=== PATIENT | male | born 1950 | race Caucasian/White ===

== ENCOUNTER 2018-02-15 12:31 | Inpatient (IN) | payer MEDICARE, MEDICAID ==
[2018-02-15] MEDS ORDERED: cefTRIAXone(*) 1 GM in NS 0.9% 50 ML* 50 ML IVPB ONE (12:33)
[2018-02-15] MEDS ORDERED: Morphine INJ* 2 MG/ML 1 ML SYRINGE (TWO MG - NEW SYRINGE VERSION) IV ONE (12:33)
[2018-02-15] MEDS ORDERED: NS 0.9% 1000 ML* 1,000 ML IV ONE ×2 (12:33→20:10)
--- NOTE | 2018-02-15 12:40 | ED ---
Shortness of Breath - HPI Summary HPI Summary: This is screlvise Tj Silver documenting for attending Toy Morse MD. This patient is a 67 year old M BIBA to ED with a chief complaint of SOB since earlier today. The patient had a biopsy of his lungs and his transfer man found a spot in his lungs. The patient was given a new inhaler and after an acute onset of SOB, he used it a multitude of times because he thought it wasn t helping. He is not sure how many times he used it. Upon arrival, EMS report the patient was in respiratory distress, had expiratory wheezes, and heard nothing in the bases. O2 sat was 81%. Symptoms aggravated by nothing. Symptoms alleviated by nothing. - History of Current Complaint Hx Obtained From: Patient Onset/Duration: Sudden Onset, Lasting Minutes - DESIGN ENGINEERING MANAGER, Still Present Timing: Constant Current Severity: None Aggrevating Factors: Nothing Alleviating Factors: Nothing - Allergy/Home Medications Allergies/Adverse Reactions: Allergies Allergy/AdvReac Type Severity Reaction Status Date / Time Sulfa (Sulfonamide Allergy Unknown Verified 02/15/18 12:56 Antibiotics) Reaction Details Home Medications: Home Medications Albuterol HFA INHALER* [Ventolin HFA Inhaler*] 2 puff INH Q4H PRN 02/15/18 [ History Confirmed 02/15/18] Aspirin 81 mg CHEW TAB* [Aspirin Low Dose TAB*] 162 mg PO DAILY 02/15/18 [ History Confirmed 02/15/18] PMH/Surg Hx/FS Hx/Imm Hx Endocrine/Hematology History: Denies: Hx Diabetes Cardiovascular History: Denies: Hx Hypertension Respiratory History: Reports: Hx Chronic Obstructive Pulmonary Disease (COPD) - Family History Known Family History: Negative: Cardiac Disease, Hypertension, Diabetes - Social History Alcohol Use: None Hx Substance Use: Yes Substance Use Type: Reports: Marijuana Hx Tobacco Use: Yes Review of Systems Negative: Fever Positive: Shortness Of Breath, Other - per EMS, he was in respiratory distress upon arrival with expiratory wheezes and they heard nothing in the bases All Other Systems Reviewed And Are Negative: Yes Physical Exam - Summary Physical Exam Summary: VITAL SIGNS: Reviewed. GENERAL: Patient is a well-developed and nourished MALE who is lying comfortable in the stretcher. Patient is in respiratory distress. HEAD AND FACE: No signs of trauma. No ecchymosis, hematomas or skull depressions. No sinus tenderness. EYES: PERRLA, EOMI x 2, No injected conjunctiva, no nystagmus. EARS: Hearing grossly intact. Ear canals and tympanic membranes are within normal limits. MOUTH: Oropharynx within normal limits. NECK: Supple, trachea is midline, no adenopathy, no JVD, no carotid bruit, no c- spine tenderness, neck with full ROM. CHEST: Symmetric, no tenderness at palpation LUNGS: The patient is under respiratory distress. He is unable to speak full sentences. He has intercostal retraction. Decreased breath sounds bilaterally. Small wheezes. Really tight. CVS: Regular rate and rhythm, S1 and S2 present, no murmurs or gallops appreciated. ABDOMEN: Soft, non-tender. No signs of distention. No rebound no guarding, and no masses palpated. Bowel sounds are normal. EXTREMITIES: FROM in all major joints, no edema, no cyanosis or clubbing. NEURO: Alert and oriented x 3. No acute neurological deficits. Speech is normal and follows commands. SKIN: Dry and warm Triage Information Reviewed: Yes Vital Signs On Initial Exam: Initial Vitals Temp Pulse Resp BP Pulse Ox 98 F 73 24 157/95 97 02/15/18 12:52 02/15/18 12:52 02/15/18 12:52 02/15/18 12:52 02/15/18 12:52 Vital Signs Reviewed: Yes Diagnostics - Laboratory Result Diagrams: 02/15/18 12:54 02/15/18 12:54 Lab Statement: Any lab studies that have been ordered have been reviewed, and results considered in the medical decision making process. - Radiology CXR Radiology Interpretation Completed By: Radiologist - MODERATE RIGHT-SIDED PNEUMOTHORAX. PRELIMINARY FINDINGS WERE DISCUSSED WITH DR. MORSE IN THE EMERGENCY DEPARTMENT AT APPROXIMATELY 1:51 PM ON FEBRUARY 15, 2018. ED physician has reviewed this radiology report. - EKG 1242 Cardiac Rate: NL - 85 BPM EKG Rhythm: Sinus Rhythm EKG Interpretation: No ST elevations. ST depression in II, III, aVF, and V4 V6. Multiple PVCs Re-Evaluation - Re-Evaluation First Eval Re-Evaluation Time: 12:55 Change: Unchanged Second Eval Re-Evaluation Time: 13:04 Change: Improved Comment: The patient is feeling a lot better. The retraction has improved. Third Eval Re-Evaluation Time: 13:58 Comment: Patient reports he had his biopsy in [place] with Dr. Ball yesterday. Course/Dx - Course Assessment/Plan: This patient is a 67 year old M BIBA to ED with a chief complaint of SOB since earlier today. The patient had a biopsy of his lungs and his transfer man found a spot in his lungs. The patient was given a new inhaler and after an acute onset of SOB, he used it a multitude of times because he thought it wasnt helping. He is not sure how many times he used it. Upon arrival, EMS report the patient was in respiratory distress, had expiratory wheezes, and heard nothing in the bases. O2 sat was 81%. Symptoms aggravated by nothing. Symptoms alleviated by nothing. Blood test results as well as a count of 19, with 86.1 neutrophils. There is no bands. CMP shows a carbon dioxide of 21 and glucose 141 and lactic acid is 2.6. Troponin is 0.01. ABG shows a pH of 7.31, PCO2 of 38, PO2 is 73, and O2 sat is 95% and a BiPAP machine. The patient was given duonebs, he was given morphine and seemed to significantly improve. Chest x-ray impression: Moderate right-sided pneumothorax approximately 30% as per Dr. Mason. At this time I discussed the findings and test results with Dr. Pascual from his surgery and he will consult for this patient. I also discussed the findings and test results with Dr. Martin from the hospitalist services who accepted the patient for admission. At this time the patient is feeling better, - Diagnoses Differential Diagnosis/HQI/PQRI: Positive: Asthma, Bronchitis, CHF, COPD Exacerbation, Pneumonia, Pulmonary Edema Provider Diagnoses: COPD exacerbation, Pneumothorax - Physician Notifications Discussed Care of Patient With: Kris Pascual Time Discussed With Above Provider: 14:03 Instructed by Provider To: Other - Consulted Dr. Pascual who will consult with the patient in the ED. Consulted Dr. Martin at 1422 who accepts the patient for admission. Discharge - Sign-Out/Discharge Documenting (check all that apply): Patient Departure - Discharge Plan Condition: Stable Disposition: ADMITTED TO [facility] Referrals: No Primary Care Phys,NOPCP [Primary Care Provider] - - Billing Disposition and Condition Condition: STABLE Disposition: Admitted to [facility]
[2018-02-15] MEDS ORDERED: Albuterol/Ipratropium NEB.SOL* Albuterol 2.5 MG/Ipratropium 0.5 MG 3 ML ONE (12:57)
[2018-02-15] MEDS: Albuterol/Ipratropium NEB.SOL* Albuterol 2.5 MG/Ipratropium 0.5 MG 3 ML INH SCH ×6 (13:00→23:43)
[2018-02-15 13:13] LABS: ABS Basophils 0.1 10^3/ul (0-0.2); ABS Eosinophils 0 10^3/ul (0-0.6); ABS Lymphocytes 1.2 10^3/ul (1.0-4.8); ABS Monocytes 1.3 10^3/ul (0-0.8); ABS Neutrophils 16.3 10^3/ul (1.5-7.7); ABS Nucleated RBC 0 10^3/ul; Eosinophil % 0.1 % (0-6); Hematocrit 45 % (42-52); Hemoglobin 14.9 g/dl (14.0-18.0); Lymphocyte % 6.5 % (25-47); Mean Corpuscular HGB Conc 33 g/dl (31-36); Mean Corpuscular Hemoglobin 31 pg (27-31); Mean Corpuscular Volume 92 fL (80-94); Nucleated Red Blood Cells % 0; Platelet Count 226 10^3/ul (150-450); Red Blood Count 4.88 10^6/ul (4.00-5.40); Red Cell Distribution Width 15 % (10.5-15)
[2018-02-15 13:27] LABS: EGFR Non-African American 79.1 (>60)
--- NOTE | 2018-02-15 13:55 | RAD ---
HISTORY: SOB COMPARISONS: None VIEWS: 1: frontal portable view of the chest at 1:15 PM FINDINGS: LINES AND TUBES: None. CARDIOMEDIASTINAL SILHOUETTE: The cardiomediastinal silhouette is normal for portable technique. PLEURA: There is a moderate right-sided pneumothorax. LUNG PARENCHYMA: There is hyperinflation with emphysematous changes of the lung apices. There is compressive atelectasis of the right lower lung. ABDOMEN: The upper abdomen is clear. There is no subphrenic gas. BONES AND SOFT TISSUES: There is remote post right changes to the right hemithorax. IMPRESSION: MODERATE RIGHT-SIDED PNEUMOTHORAX. PRELIMINARY FINDINGS WERE DISCUSSED WITH DR. ZHENG IN THE EMERGENCY DEPARTMENT AT APPROXIMATELY 1:51 PM ON FEBRUARY 15, 2018.
[2018-02-15] MEDS ORDERED: Mouth Piece, Nicotine* 1 EACH CARTRIDGE INH PRN (15:14)
[2018-02-15] MEDS ORDERED: Ondansetron INJ* 2 MG/ML VIAL IV PRN (15:14)
[2018-02-15] MEDS ORDERED: Albuterol 2.5 MG/3 ML NEB.SOL* (0.083%) INH PRN (15:23)
[2018-02-15] MEDS: Nicotine PATCH 21 MG/24 HR* PATCH TRANSDERM SCH (15:32)
[2018-02-15 18:47] LABS: Urine Appearance Clear; Urine Blood Negative (Negative); Urine Color Yellow; Urine Ketones Negative (Negative); Urine Protein Negative (Negative); Urine Specific Gravity 1.016 (1.010-1.030); Urine Urobilinogen Negative (Negative)
--- NOTE | 2018-02-15 19:07 | RAD ---
INDICATION: Patient is status post chest tube insertion COMPARISON: Chest x-ray acquired at 1318 hours the same day TECHNIQUE: Single AP portable view of the chest was obtained. FINDINGS: Image quality is compromised due to the relative inferiority of a portable chest x-ray. The right-sided pneumothorax is not readily visible status post small bore right upper chest tube placement. Chest tube terminates at the lateral aspect of the right lung base. There is density at the right lung base which could represent atelectasis, infiltrate or solid nodule. There is no mediastinal shift. IMPRESSION: 1. Apparent interval resolution of right-sided pneumothorax status post small bore chest tube placement. 2. Density at the right lung base could represent atelectasis, infiltrate or neoplasm. Follow-up chest x-ray in 4-6 weeks is advised.
[2018-02-15] MEDS: Morphine INJ* 2 MG/ML 1 ML SYRINGE (TWO MG - NEW SYRINGE VERSION) IV PRN ×2 (19:57→23:38)
[2018-02-15] MEDS ORDERED: methylPREDNISolone SOD 40 MG* 1 ML VIAL IV SCH (20:00)
[2018-02-15] MEDS: Nicotine Inhaler* 10 MG AMP INH PRN (20:03)
[2018-02-15] MEDS: Mouth Piece, Nicotine* 1 EACH CARTRIDGE INH PRN (20:03)
[2018-02-15] MEDS: NS 0.9% 1000 ML* 1,000 ML IV SCH ×2 (20:17→21:02)
[2018-02-15] MEDS: Heparin VIAL(*) 5000 UNITS/ML VIAL (FIVE THOUSAND) SUBCUT SCH (22:09)
[2018-02-15] MEDS: methylPREDNISolone SOD 40 MG* 1 ML VIAL IV SCH (22:09)
[2018-02-15] MEDS: Acetaminophen TAB* 325 MG PO PRN (23:38)
--- NOTE | 2018-02-15 23:48 | HP ---
HISTORY AND PHYSICAL: DATE OF ADMISSION: 02/15/18 PRIMARY CARE PROVIDER: Unknown. CHIEF COMPLAINT: Shortness of breath. HISTORY OF PRESENT ILLNESS: Mr. Leung is a 67-year-old male who reports no past medical history, who presents to the emergency room with complaints of sudden onset of shortness of breath. The patient states that approximately 1 month ago, he had a followup with his primary care provider and was recommended to undergo CT scan of the chest to evaluate for possible lung cancer. Reportedly, an abnormality was found. He was referred to [facility], where he underwent bronchoscopy and biopsy. He is unaware of the results of the biopsy. He states that things have been going pretty well up until the night prior to admission, when he describes having 2 anxiety attacks. He noted that his heart rate became rapid. He was able to calm himself down and everything resolved. The patient states that he then woke up at approximately 4 a.m. feeling like he needs to go outside to smoke. He states he had 2 or 3 cigarettes and suddenly felt severely short of breath. He tried using his albuterol inhaler multiple times, though had no effect. The patient ultimately told his roommate that he felt he needed to come to the emergency room. PAST MEDICAL HISTORY: Questionable COPD. PAST SURGICAL HISTORY: Tonsillectomy. MEDICATIONS: 1. Aspirin 81 mg p.o. daily. 2. Albuterol 2 puffs inhaled q.4 hours p.r.n. shortness of breath. ALLERGIES: SULFA. FAMILY HISTORY: Mom at the age of 85 with CVA. Dad at the age of 75 with an [place]. SOCIAL HISTORY: The patient has smoked 2 packs per day for 47 years. He denies any alcohol use. He works at construction. He is not . He has no children. He is unable to choose healthcare proxy at this time. REVIEW OF SYSTEMS: A complete 11-system review of systems is obtained. Pertinent positives and negatives are as per HPI, though the patient does also complain of right shoulder discomfort. Otherwise, review of systems is negative. PHYSICAL EXAMINATION GENERAL: The patient is a well-developed, middle-aged male, seen sitting in the stretcher on BiPAP, in no acute distress. VITAL SIGNS: Blood pressure 157/95, pulse 73, respirations 24, temp 98, O2 sat 97% on BiPAP. HEENT: Pupils are equal and round. Extraocular muscles are intact. Oropharynx is clear. Oral mucosa is moist. There is no submandibular, cervical or supraclavicular adenopathy. Thyroid is not enlarged. No thyroid nodules noted. PULMONARY: There are absent breath sounds heard on the right with diminished breath sounds on the left. CARDIAC: Normal S1, S2. Regular rate and rhythm. I do not appreciate any murmurs. There is no lower extremity edema. ABDOMEN: Bowel sounds are present. Abdomen is soft, nontender, nondistended. MUSCULOSKELETAL: There is no cyanosis or clubbing of the digits. There is full active range of motion of all 4 extremities. NEUROLOGIC: Cranial nerves II through XII are grossly intact. Sensation is intact to light touch throughout. Strength is 5/5 and symmetric in both upper and lower extremities bilaterally. SKIN: Warm and dry. There are no rashes. PSYCH: The patient is alert. He is oriented x3. Affect appears appropriate. LABORATORY DATA: WBC 19.0, hemoglobin 14.9, hematocrit 45, platelets 226. Sodium 139, potassium 3.8, chloride 107, CO2 21, BUN 16, creatinine 0.95, glucose 141, lactic acid 3.6, calcium 8.9, bilirubin 0.3, AST 16, ALT 16, alk phos 54. CPK 142. Troponin 0.01. CRP less than 1. BNP 97. Albumin 4.2. Procalcitonin less than 0.1. Urinalysis reveal specific gravity of 1.016 and otherwise is negative. EKG reveals normal sinus rhythm with PVCs and ST depressions in the inferolateral leads. We have no old EKG to compare. Chest x-ray reveals moderate right-sided pneumothorax. ASSESSMENT AND PLAN: Mr. Leung is a 67-year-old male with an extensive smoking history, recent bronchoscopy and biopsy of a suspicious lung finding, who presented to the emergency room with complaints of sudden onset of severe shortness of breath. 1. Right-sided pneumothorax. This likely is secondary to blood rupture. The patient was treated initially with BiPAP in the emergency room; however, would like to get him off of positive pressure ventilation. The patient will be seen by Dr. Pascual for Heimlich valve insertion. The patient has a marked leukocytosis at 19,000. I suspect this is stress related from the pneumothorax. Additionally, he has a lactic acidosis. I too think this is related to his work of breathing in the setting of having the pneumothorax. The lactic acid will be followed. 2. Probable chronic obstructive lung disease. The patient will be started on DuoNeb every 4 hours scheduled. This can likely be titrated back tomorrow. He will also have Solu-Medrol q.12 hours. Again, this too can be scaled back tomorrow if he has no wheezing, which reportedly was present on presentation to the emergency room. The patient will have morphine available for pain and air hunger control. 3. Tobacco abuse. The patient will have a nicotine patch and inhaler available. 4. DVT prophylaxis: According to the Adult Thrombosis Prophylaxis Risk Factor Assessment Guide, the patient has a total risk factor score of 3 making him high risk. Subcu heparin will be utilized as DVT prophylaxis. 5. Code status is full. TIME SPENT: Sixty five minutes were spent admitting this patient of which greater than half was spent [id number] with the patient reviewing his history and performing his physical exam. [id number]/[facility] #: [id number] SEAN
[2018-02-16] MEDS: Albuterol/Ipratropium NEB.SOL* Albuterol 2.5 MG/Ipratropium 0.5 MG 3 ML INH SCH ×2 (03:36→07:28)
[2018-02-16] MEDS: Heparin VIAL(*) 5000 UNITS/ML VIAL (FIVE THOUSAND) SUBCUT SCH ×3 (06:05→21:43)
--- NOTE | 2018-02-16 06:12 | OP ---
DATE OF OPERATION: 02/15/18 - ROOM #415 DATE OF : 50 SURGEON: Kris Pascual MD MOTOR GRADER OPERATOR: None. ANESTHESIOLOGIST: None. PRE-OP DIAGNOSIS: Right pneumothorax. POST-OP DIAGNOSIS: Right pneumothorax. OPERATIVE PROCEDURE: Placement of right anterior pneumothorax catheter. INDICATIONS: The patient is a 67-year-old male who was seen down at [place] yesterday for bronchoscopic biopsy of a lung lesion. He presented to the emergency room today with increasing dyspnea. A chest x-ray revealed moderate- sized right pneumothorax. On my examination of him, he is wearing a CPAP type device and maintaining good oxygenation with that, but has decreased breath sounds on the right side. I discussed this with him and I recommend a pneumothorax catheter on the right side. He is understanding and is agreeable to this approach. DESCRIPTION OF PROCEDURE: The right anterior chest is prepped antiseptic and draped in sterile fashion. Local infiltrative anesthesia of 1% plain lidocaine was administered and approximately the second interspace is entered in the midclavicular line. Skinny needle identifies air and then the pneumothorax catheter is placed and this is hooked to the Heimlich valve device. It is sutured to the skin and bandage is placed. He tolerated this well. A chest x- ray will be obtained and we will continue to follow him thereafter. [id number]/[facility] #: [id number] MTDD
[2018-02-16 06:51] LABS: Hematocrit 39 % (42-52); Hemoglobin 13.1 g/dl (14.0-18.0); Mean Corpuscular HGB Conc 33 g/dl (31-36); Mean Corpuscular Hemoglobin 31 pg (27-31); Mean Corpuscular Volume 91 fL (80-94); Mean Platelet Volume 8.9 um3 (7.4-10.4); Platelet Count 177 10^3/ul (150-450); Red Blood Count 4.29 10^6/ul (4.00-5.40); Red Cell Distribution Width 15 % (10.5-15); White Blood Count 13.3 10^3/ul (3.5-10.8)
[2018-02-16 06:57] LABS: ABS Basophils 0 10^3/ul (0-0.2); ABS Eosinophils 0 10^3/ul (0-0.6); ABS Lymphocytes 0.8 10^3/ul (1.0-4.8); ABS Monocytes 0.5 10^3/ul (0-0.8); ABS Neutrophils 11.9 10^3/ul (1.5-7.7); ABS Nucleated RBC 0 10^3/ul; Eosinophil % 0 % (0-6); Lymphocyte % 6.3 % (25-47); Nucleated Red Blood Cells % 0
[2018-02-16 07:58] LABS: EGFR Non-African American 99.3 (>60)
--- NOTE | 2018-02-16 08:58 | PN ---
Progress Note - Progress Note Date of Service: 02/16/18 Note: Day #2 right ptx Feels well, breathing easier, no pain Heimlich valve still with expiratory air leak. Impr: Iatrogenic right ptx Cont Heimlich valve until air leak resolved
[2018-02-16] MEDS: Nicotine Inhaler* 10 MG AMP INH PRN (09:28)
[2018-02-16] MEDS: methylPREDNISolone SOD 40 MG* 1 ML VIAL IV SCH (09:28)
[2018-02-16] MEDS: Nicotine PATCH 21 MG/24 HR* PATCH TRANSDERM SCH (09:28)
[2018-02-16] MEDS: NS 0.9% 1000 ML* 1,000 ML IV SCH ×2 (09:28→21:42)
[2018-02-16] MEDS ORDERED: Albuterol/Ipratropium NEB.SOL* Albuterol 2.5 MG/Ipratropium 0.5 MG 3 ML INH PRN (09:45)
--- NOTE | 2018-02-16 15:29 | PN ---
Subjective Date of Service: 02/16/18 Interval History: Pt is feeling winded currently; he just got back to his bed from walking about [address] He states he has no pain. His SOB prior to the walk was better than it has been recently. Objective Active Medications: Acetaminophen (Tylenol Tab*) 650 mg PO Q4H PRN PRN Reason: PAIN Last Admin: 02/15/18 23:38 Dose: 650 mg Albuterol (Ventolin 2.5 Mg/3 Ml Neb.Isamar*) 2.5 mg INH Q2H PRN PRN Reason: SOB/WHEEZING Albuterol/Ipratropium (Duoneb (Albuterol 2.5 Mg/Ipratropium 0.5 Mg)) 1 neb INH Q4H PRN PRN Reason: SHORTNESS OF BREATH Last Admin: 02/16/18 12:27 Dose: 1 neb Device (Nicotine Mouth Piece*) 1 each INH .USE WITH NICOTROL PRN PRN Reason: CRAVING Last Admin: 02/15/18 20:03 Dose: 1 each Heparin Sodium (Porcine) (Heparin Vial(*)) 5,000 units SUBCUT Q8HR [facility] Last Admin: 02/16/18 06:05 Dose: 5,000 units Sodium Chloride (Ns 0.9% 1000 Ml*) 1,000 mls @ 100 mls/hr IV PER RATE [facility] Last Admin: 02/16/18 09:28 Dose: 100 mls/hr Morphine Sulfate (Morphine Inj ((Syringe))*) 2 mg IV Q4H PRN PRN Reason: PAIN - MILD Last Admin: 02/15/18 23:38 Dose: 2 mg Nicotine (Nicotine Inhaler*) 10 mg INH Q2H PRN PRN Reason: CRAVING Last Admin: 02/16/18 09:28 Dose: 10 mg Nicotine (Nicotine Patch 21 Mg/24 Hr*) 1 patch TRANSDERM DAILY@0800 [facility] Last Admin: 02/16/18 09:28 Dose: 1 patch Ondansetron HCl (Zofran Inj*) 4 mg IV Q6H PRN PRN Reason: NAUSEA Vital Signs - 8 hr 02/16/18 02/16/18 07:29 12:29 Pulse Rate 78 86 Respiratory 14 14 Rate O2 Sat by Pulse 97 96 Oximetry Oxygen Devices in Use Now: Nasal Cannula Appearance: Middle aged male sitting up in bed, tachypnic, NAD Eyes: No Scleral Icterus Ears/Nose/Mouth/Throat: Mucous Membranes Moist Respiratory: Symmetrical Chest Expansion and Respiratory Effort, Clear to Auscultation - diminshed breath sounds throughout Cardiovascular: NL Sounds; No Murmurs; No JVD, RRR, No Edema Abdominal: NL Sounds; No Tenderness; No Distention Extremities: No Clubbing, Cyanosis Skin: No Nodules or Sclerosis Neurological: Alert and Oriented x 3 Result Diagrams: 02/16/18 06:39 02/16/18 06:39 Microbiology and Other Data: Microbiology 02/15/18 13:43 Aerobic Blood Culture - Preliminary Blood Venous No Growth Day 1 Anaerobic Blood Culture - Preliminary No Growth Day 1 02/15/18 12:54 Aerobic Blood Culture - Preliminary Blood Venous No Growth Day 1 Anaerobic Blood Culture - Preliminary No Growth Day 1 Assess/Plan/Problems-Billing Mr Leung is a 67 yo M who has a h/o probable COPD and ongoing tobacco abuse ( 2ppd) who presented to the ER with c/o severe SOB and was found to have a moderate R sided pleural effusion. - Patient Problems (1) Pneumothorax, acute Current Visit: Yes Status: Acute Code(s): J93.83 - OTHER PNEUMOTHORAX SNOMED Code(s): 41063262 Comment: Pt had recent bronchoscopy with biopsy for a suspicious lung lesion but on the AM of admission had the sudden onset of SOB. Will try to get records [place] [facility] to determine when his procedure was. The patient had a heimlich valve placed by Dr. Pascual yesterday with marked improvment in his SOB. Management of the pneumothorax per Dr Pascual. (2) COPD exacerbation Current Visit: Yes Status: Acute Code(s): J44.1 - CHRONIC OBSTRUCTIVE PULMONARY DISEASE W (ACUTE) EXACERBATION SNOMED Code(s): 013271006 Comment: The patient had significant wheezing in the ER. No further wheezing but his breath sounds are diminished. Will stop solumedrol and change to prednisone. Continue nebs. (3) DVT prophylaxis Current Visit: Yes Status: Acute Code(s): EHZ5650 - SNOMED Code(s): 618355308 Comment: SQ heparin (4) Full code status Current Visit: Yes Status: Acute Code(s): Z78.9 - OTHER SPECIFIED HEALTH STATUS SNOMED Code(s): 310592943
[2018-02-16] MEDS: Acetaminophen TAB* 325 MG PO PRN (21:42)
[2018-02-17] MEDS: Heparin VIAL(*) 5000 UNITS/ML VIAL (FIVE THOUSAND) SUBCUT SCH ×3 (05:56→21:40)
--- NOTE | 2018-02-17 07:25 | PN ---
Subjective Date of Service: 02/17/18 Interval History: Feels "much better" today. Has been on two walks since admission and thinks he is getting better and stronger each day. Denies wheezing, denies pain. No shortness of breath right now. Had a cough this morning but minimal sputum. Objective Active Medications: Acetaminophen (Tylenol Tab*) 650 mg PO Q4H PRN PRN Reason: PAIN Last Admin: 02/16/18 21:42 Dose: 650 mg Albuterol (Ventolin 2.5 Mg/3 Ml Neb.Isamar*) 2.5 mg INH Q2H PRN PRN Reason: SOB/WHEEZING Albuterol/Ipratropium (Duoneb (Albuterol 2.5 Mg/Ipratropium 0.5 Mg)) 1 neb INH Q4H PRN PRN Reason: SHORTNESS OF BREATH Last Admin: 02/16/18 12:27 Dose: 1 neb Device (Nicotine Mouth Piece*) 1 each INH .USE WITH NICOTROL PRN PRN Reason: CRAVING Last Admin: 02/15/18 20:03 Dose: 1 each Heparin Sodium (Porcine) (Heparin Vial(*)) 5,000 units SUBCUT Q8HR [facility] Last Admin: 02/17/18 05:56 Dose: 5,000 units Sodium Chloride (Ns 0.9% 1000 Ml*) 1,000 mls @ 100 mls/hr IV PER RATE [facility] Last Admin: 02/16/18 21:42 Dose: 100 mls/hr Morphine Sulfate (Morphine Inj ((Syringe))*) 2 mg IV Q4H PRN PRN Reason: PAIN - MILD Last Admin: 02/15/18 23:38 Dose: 2 mg Nicotine (Nicotine Inhaler*) 10 mg INH Q2H PRN PRN Reason: CRAVING Last Admin: 02/16/18 09:28 Dose: 10 mg Nicotine (Nicotine Patch 21 Mg/24 Hr*) 1 patch TRANSDERM DAILY@0800 [facility] Last Admin: 02/16/18 09:28 Dose: 1 patch Ondansetron HCl (Zofran Inj*) 4 mg IV Q6H PRN PRN Reason: NAUSEA Prednisone (Deltasone Tab*) 40 mg PO DAILY [facility] Vital Signs - 8 hr 02/16/18 02/17/18 02/17/18 23:23 03:01 03:39 Temperature 98.0 F Pulse Rate 68 68 54 Respiratory 18 20 18 Rate Blood Pressure 149/79 157/95 (mmHg) O2 Sat by Pulse 96 96 98 Oximetry Oxygen Devices in Use Now: Nasal Cannula Appearance: alert, sitting up in bed breathing comfortably Eyes: No Scleral Icterus Ears/Nose/Mouth/Throat: NL Teeth, Lips, Gums Neck: NL Appearance and Movements; NL JVP Respiratory: Symmetrical Chest Expansion and Respiratory Effort, Clear to Auscultation, - - barrel chest, no wheezing. heimlich valve in place over right chest Cardiovascular: NL Sounds; No Murmurs; No JVD, RRR Abdominal: NL Sounds; No Tenderness; No Distention Lymphatic: No Cervical Adenopathy Extremities: - - + clubbing Skin: No Rash or Ulcers Neurological: Alert and Oriented x 3 Result Diagrams: 02/16/18 06:39 02/16/18 06:39 Microbiology and Other Data: Microbiology 02/15/18 13:43 Aerobic Blood Culture - Preliminary Blood Venous No Growth Day 1 Anaerobic Blood Culture - Preliminary No Growth Day 1 02/15/18 12:54 Aerobic Blood Culture - Preliminary Blood Venous No Growth Day 1 Anaerobic Blood Culture - Preliminary No Growth Day 1 Assess/Plan/Problems-Billing 67 yo man who has a h/o probable COPD and ongoing tobacco abuse (2ppd) who presented to the ER with c/o severe SOB and was found to have a moderate R sided pneumothorax 3 days after a bronchoscopy . - Patient Problems (1) Pneumothorax, acute Current Visit: Yes Status: Acute Code(s): J93.83 - OTHER PNEUMOTHORAX SNOMED Code(s): 96795618 Comment: Heimlich valve in place, tolerating well Repeat CXR today Dr. Pascual following (2) COPD exacerbation Current Visit: Yes Status: Acute Code(s): J44.1 - CHRONIC OBSTRUCTIVE PULMONARY DISEASE W (ACUTE) EXACERBATION SNOMED Code(s): 549396911 Comment: improving now on prednisone and nebs (3) DVT prophylaxis Current Visit: Yes Status: Acute Code(s): UBF9162 - SNOMED Code(s): 310246775 Comment: SQ heparin (4) Tobacco abuse Current Visit: Yes Status: Acute Code(s): Z72.0 - TOBACCO USE SNOMED Code( s): 679103093 Comment: counseled for 10 minutes about cessation, he is motivated to quit
[2018-02-17] MEDS: predniSONE TAB* 20 MG PO SCH (08:26)
[2018-02-17] MEDS: Nicotine PATCH 21 MG/24 HR* PATCH TRANSDERM SCH (08:26)
[2018-02-17] MEDS: Mouth Piece, Nicotine* 1 EACH CARTRIDGE INH PRN (08:29)
[2018-02-17] MEDS: Nicotine Inhaler* 10 MG AMP INH PRN ×3 (08:29→20:02)
--- NOTE | 2018-02-17 08:42 | PN ---
Progress Note - Progress Note Date of Service: 02/17/18 Note: Surgery Progress: S: Day #2 s/p Heimlich placement. Patient states that he is short of breath, but nothing compared to before the Heimlich. He denies chest pain. O: Vital Signs - 8 hr 02/17/18 02/17/18 02/17/18 03:01 03:39 07:25 Temperature 98.0 F Pulse Rate 68 54 62 Respiratory 20 18 20 Rate Blood Pressure 157/95 147/84 (mmHg) O2 Sat by Pulse 96 98 92 Oximetry Gen: appears comfortable, though mildly dyspneic while talking Heart reg; Lungs: clear to ausc; sl decreased at bases Heimlich: still shows sig air leak (under water test) A: Right ptx; s/p Heimlich placement w/ ongoing airleak P: will recheck cXray; discuss w/ Dr. Pascual; cont Heimlich (consider placing to suction)
--- NOTE | 2018-02-17 11:19 | RAD ---
Indication: Follow-up right pneumothorax. Dual energy PA views in inspiration and expiration are reviewed. There is a small right pneumothorax. Right chest tube is in place. Lung garnica appear hyperinflated. Subcutaneous emphysema is noted in the right hemithorax. IMPRESSION: Right pneumothorax persists with subcutaneous emphysema.
[2018-02-17] MEDS: Acetaminophen TAB* 325 MG PO PRN (19:56)
[2018-02-17] MEDS: Morphine INJ* 2 MG/ML 1 ML SYRINGE (TWO MG - NEW SYRINGE VERSION) IV PRN (21:38)
[2018-02-18] MEDS: Nicotine Inhaler* 10 MG AMP INH PRN ×2 (02:35→21:23)
[2018-02-18] MEDS: Morphine INJ* 2 MG/ML 1 ML SYRINGE (TWO MG - NEW SYRINGE VERSION) IV PRN ×2 (03:12→12:21)
[2018-02-18] MEDS: Heparin VIAL(*) 5000 UNITS/ML VIAL (FIVE THOUSAND) SUBCUT SCH ×3 (05:54→21:23)
--- NOTE | 2018-02-18 08:04 | PN ---
Progress Note - Progress Note Date of Service: 02/18/18 Note: HD#3 Heimlich valve for Right Ptx Still with some dyspnea Tube with peristent exp air leak Will place Heimlich to pleurevac suction
--- NOTE | 2018-02-18 08:19 | PN ---
Subjective Date of Service: 02/18/18 Interval History: Had an episode of shortness of breath when he walked to the bathroom yesterday. Dixon his heart was racing but manual hr was 68 by RN. He again reports an episode of shortness of breath when he was getting his vitals taken this morning at rest. He also reports anxiety often. He has no pain at the tube site. Family History: Unchanged from Admission Social History: Unchanged from Admission Past Medical History: Unchanged from Admission Objective Active Medications: Acetaminophen (Tylenol Tab*) 650 mg PO Q4H PRN PRN Reason: PAIN Last Admin: 02/17/18 19:56 Dose: 650 mg Albuterol (Ventolin 2.5 Mg/3 Ml Neb.Isamar*) 2.5 mg INH Q2H PRN PRN Reason: SOB/WHEEZING Albuterol/Ipratropium (Duoneb (Albuterol 2.5 Mg/Ipratropium 0.5 Mg)) 1 neb INH Q4H PRN PRN Reason: SHORTNESS OF BREATH Last Admin: 02/16/18 12:27 Dose: 1 neb Device (Nicotine Mouth Piece*) 1 each INH .USE WITH NICOTROL PRN PRN Reason: CRAVING Last Admin: 02/17/18 08:29 Dose: 1 each Heparin Sodium (Porcine) (Heparin Vial(*)) 5,000 units SUBCUT Q8HR [facility] Last Admin: 02/18/18 05:54 Dose: 5,000 units Morphine Sulfate (Morphine Inj ((Syringe))*) 2 mg IV Q4H PRN PRN Reason: PAIN - MILD Last Admin: 02/18/18 03:12 Dose: 2 mg Nicotine (Nicotine Inhaler*) 10 mg INH Q2H PRN PRN Reason: CRAVING Last Admin: 02/18/18 02:35 Dose: 10 mg Nicotine (Nicotine Patch 21 Mg/24 Hr*) 1 patch TRANSDERM DAILY@0800 [facility] Last Admin: 02/17/18 08:26 Dose: 1 patch Ondansetron HCl (Zofran Inj*) 4 mg IV Q6H PRN PRN Reason: NAUSEA Prednisone (Deltasone Tab*) 40 mg PO DAILY [facility] Last Admin: 02/17/18 08:26 Dose: 40 mg Vital Signs - 8 hr 02/18/18 02/18/18 02/18/18 02:33 03:12 04:38 Temperature 97.6 F Pulse Rate 63 Respiratory 20 22 18 Rate Blood Pressure 150/97 (mmHg) O2 Sat by Pulse 92 Oximetry Oxygen Devices in Use Now: Nasal Cannula Appearance: alert, no distress, slightly tachypneic when he talks but able to speak in full sentences Eyes: No Scleral Icterus Ears/Nose/Mouth/Throat: NL Teeth, Lips, Gums Neck: NL Appearance and Movements; NL JVP Respiratory: Symmetrical Chest Expansion and Respiratory Effort, - - decreased breath sounds at right apex but present Cardiovascular: NL Sounds; No Murmurs; No JVD, RRR Abdominal: NL Sounds; No Tenderness; No Distention Lymphatic: No Cervical Adenopathy Extremities: - - +clubbing Skin: No Rash or Ulcers Neurological: Alert and Oriented x 3 Result Diagrams: 02/16/18 06:39 02/16/18 06:39 Microbiology and Other Data: Microbiology 02/15/18 13:43 Aerobic Blood Culture - Preliminary Blood Venous No Growth Day 1 Anaerobic Blood Culture - Preliminary No Growth Day 1 02/15/18 12:54 Aerobic Blood Culture - Preliminary Blood Venous No Growth Day 1 Anaerobic Blood Culture - Preliminary No Growth Day 1 Assess/Plan/Problems-Billing 67 yo man who has a h/o probable COPD and ongoing tobacco abuse (2ppd) who presented to the ER with c/o severe SOB and was found to have a moderate R sided pneumothorax 3 days after a bronchoscopy . - Patient Problems (1) Pneumothorax, acute Current Visit: Yes Status: Acute Code(s): J93.83 - OTHER PNEUMOTHORAX SNOMED Code(s): 22275010 Comment: Iatrogenic Heimlich valve in place, tolerating well CXR yesterday showed stable PTX. Repeat CXR again today; symptoms seem a little worse today; O2 requirement stable Dr. Pascual following Pain is controlled (2) COPD exacerbation Current Visit: Yes Status: Acute Code(s): J44.1 - CHRONIC OBSTRUCTIVE PULMONARY DISEASE W (ACUTE) EXACERBATION SNOMED Code(s): 019456301 Comment: improving now on prednisone and nebs (3) DVT prophylaxis Current Visit: Yes Status: Acute Code(s): [id number] - SNOMED Code(s): 621214782 Comment: SQ heparin (4) Tobacco abuse Current Visit: Yes Status: Acute Code(s): Z72.0 - TOBACCO USE SNOMED Code( s): 684081955 Comment: counseled again about cessation, he is motivated to quit
--- NOTE | 2018-02-18 09:17 | RAD ---
HISTORY: PTX follow up COMPARISONS: February 17, 2018 VIEWS: 2: frontal portable view of the chest at 8:40 AM FINDINGS: LINES AND TUBES: A right-sided chest tube is noted. CARDIOMEDIASTINAL SILHOUETTE: The cardiomediastinal silhouette is normal for portable technique. PLEURA: There is small residual pneumothorax predominantly along the right costophrenic angle. This is decreased from the previous examination. LUNG PARENCHYMA: There is hyperinflation. ABDOMEN: The upper abdomen is clear. There is no subphrenic gas. BONES AND SOFT TISSUES: There is subcutaneous emphysema. IMPRESSION: PERSISTENT BUT IMPROVING RIGHT-SIDED PNEUMOTHORAX PREDOMINANTLY ALONG THE RIGHT COSTOPHRENIC ANGLE
[2018-02-18] MEDS: predniSONE TAB* 20 MG PO SCH (09:35)
[2018-02-18] MEDS: Nicotine PATCH 21 MG/24 HR* PATCH TRANSDERM SCH (09:36)
[2018-02-18] MEDS: Mouth Piece, Nicotine* 1 EACH CARTRIDGE INH PRN (15:21)
--- NOTE | 2018-02-18 15:51 | PN ---
Hospitalist Progress Note Date of Service: 02/18/[address] Espinoza from [place] who called the nurses' station to report the results of Mr. Leung's biopsy. He reports that the pathology was negative, but that it was an insufficient sample and a CT-guided biopsy should be pursued. I will defer this to the team next week if he is still here, or back to Dr. Espinoza as an outpatient.
[2018-02-18] MEDS: Acetaminophen TAB* 325 MG PO PRN (21:24)
[2018-02-18] MEDS: LORazepam TAB(*) 0.5 MG PO PRN (21:59)
[2018-02-19] MEDS: Heparin VIAL(*) 5000 UNITS/ML VIAL (FIVE THOUSAND) SUBCUT SCH ×3 (05:32→20:53)
[2018-02-19] MEDS: predniSONE TAB* 20 MG PO SCH (07:50)
[2018-02-19] MEDS: Nicotine PATCH 21 MG/24 HR* PATCH TRANSDERM SCH (07:51)
[2018-02-19] MEDS: Nicotine Inhaler* 10 MG AMP INH PRN ×3 (09:18→20:53)
--- NOTE | 2018-02-19 09:58 | PN ---
Progress Note - Progress Note Date of Service: 02/19/18 SOAP: Subjective: Without complaint today-no SOB Objective: Temp Pulse Resp BP Pulse Ox 96.7 F 58 16 143/86 95 02/19/18 07:28 02/19/18 07:28 02/19/18 08:55 02/19/18 07:28 02/19/18 07:28 CT -intermittent leak on suction, no drainage PEX: Right chest tube intact. Decreased breath sounds both sides, equal Assessment: Right pneumthorax s/p biopsy Persistent air leak Plan: Continue tube to suction CXR 02/20
--- NOTE | 2018-02-19 14:16 | PN ---
Subjective Date of Service: 02/19/18 Interval History: Patient seen and examined at bedside. Denies fever, chills, chest discomfort, N/ V/D. Pt states that he was very anxious when he walked to the bathroom earlier with increased shortness of breath. He reports a good appetite. I discussed with him that he will likely need to have a CT guided bx in the future and we can discuss this further on Wednesday once interventional radiology has returned. Pt noted to still have an air leak in his chest tube. Family History: Unchanged from Admission Social History: Unchanged from Admission Past Medical History: Unchanged from Admission Objective Active Medications: Acetaminophen (Tylenol Tab*) 650 mg PO Q4H PRN Reason: PAIN Albuterol (Ventolin 2.5 Mg/3 Ml Neb.Isamar*) 2.5 mg INH Q2H PRN Reason: SOB/ WHEEZING Albuterol/Ipratropium (Duoneb (Albuterol 2.5 Mg/Ipratropium 0.5 Mg)) 1 neb INH Q4H PRN Reason: SHORTNESS OF BREATH Device (Nicotine Mouth Piece*) 1 each INH .USE WITH NICOTROL PRN Reason: CRAVING Heparin Sodium (Porcine) (Heparin Vial(*)) 5,000 units SUBCUT Q8HR [facility] Lorazepam (Ativan Tab(*)) 0.5 mg PO Q6H PRN Reason: ANXIETY Morphine Sulfate (Morphine Inj ((Syringe))*) 2 mg IV Q4H PRN Reason: PAIN - MILD Nicotine (Nicotine Inhaler*) 10 mg INH Q2H PRN Reason: CRAVING Nicotine (Nicotine Patch 21 Mg/24 Hr*) 1 patch TRANSDERM DAILY@0800 [facility] Ondansetron HCl (Zofran Inj*) 4 mg IV Q6H PRN Reason: NAUSEA Prednisone (Deltasone Tab*) 40 mg PO DAILY [facility] Vital Signs - 8 hr 02/19/18 02/19/18 02/19/18 07:28 08:55 11:11 Temperature 96.7 F 98.0 F Pulse Rate 58 65 Respiratory 22 16 16 Rate Blood Pressure 143/86 126/86 (mmHg) O2 Sat by Pulse 95 95 Oximetry Oxygen Devices in Use Now: Nasal Cannula - 4 L Appearance: NAD, sitting up in bed Ears/Nose/Mouth/Throat: Mucous Membranes Moist Respiratory: Symmetrical Chest Expansion and Respiratory Effort, Clear to Auscultation Cardiovascular: NL Sounds; No Murmurs; No JVD, RRR Abdominal: NL Sounds; No Tenderness; No Distention Extremities: No Edema Skin: No Rash or Ulcers Neurological: Alert and Oriented x 3, NL Muscle Strength and Tone Lines/Tubes/Other Access: Clean, Dry and Intact Peripheral IV - site benign, Clean, Dry and Intact Other Access - Chest tube to right upper chest Nutrition: Taking PO's Result Diagrams: 02/16/18 06:39 02/16/18 06:39 Microbiology and Other Data: Microbiology 02/15/18 13:43 Aerobic Blood Culture - Preliminary Blood Venous No Growth Day 1 Anaerobic Blood Culture - Preliminary No Growth Day 1 02/15/18 12:54 Aerobic Blood Culture - Preliminary Blood Venous No Growth Day 1 Anaerobic Blood Culture - Preliminary No Growth Day 1 Assess/Plan/Problems-Billing Assessment: Mr. Leung is a 67 yo man who has a h/o probable COPD and ongoing tobacco abuse (2ppd) who presented to the ER with c/o severe SOB and was found to have a moderate R sided pneumothorax 3 days after a bronchoscopy . - Patient Problems (1) Pneumothorax, acute Code(s): J93.83 - OTHER PNEUMOTHORAX SNOMED Code(s): 30318429 Comment: - Iatrogenic - CXR yesterday showed stable PTX - General Surgery consult, input appreciated - Continue Heimlich valve and check CXR in AM (2) COPD exacerbation Code(s): J44.1 - CHRONIC OBSTRUCTIVE PULMONARY DISEASE W (ACUTE) EXACERBATION SNOMED Code(s): 507605460 Comment: - Improving - Continue prednisone (taper) and nebs (3) Acute hypoxemic respiratory failure Code(s): J96.01 - ACUTE RESPIRATORY FAILURE WITH HYPOXIA SNOMED Code(s): 671853732 Comment: - Suspect secondary to COPD exacerbation and pneumothorax - Wean O2 as able (4) Tobacco abuse Code(s): Z72.0 - TOBACCO USE SNOMED Code(s): 273577941 Comment: - Counseled about cessation, he is motivated to quit - Continue Nicotine replacement (5) DVT prophylaxis Code(s): GQU5520 - SNOMED Code(s): 448366689 Comment: - SQ heparin (6) Full code status Code(s): Z78.9 - OTHER SPECIFIED HEALTH STATUS SNOMED Code(s): 683136160 Status and Disposition: Inpatient. Discharge to home when medically stable.
[2018-02-19] MEDS: LORazepam TAB(*) 0.5 MG PO PRN (23:48)
[2018-02-20] MEDS: Heparin VIAL(*) 5000 UNITS/ML VIAL (FIVE THOUSAND) SUBCUT SCH ×3 (05:31→20:09)
--- NOTE | 2018-02-20 08:17 | RAD ---
Indication: Follow-up right pneumothorax. Single frontal view of the chest performed at 0759 hours was reviewed. Comparison is made with previous exam dated February 18, 2018. Subcutaneous emphysema persists but is improved. Small right apical pneumothorax is noted. Right chest tube is in place. Left lung field is clear. IMPRESSION: TRACE RIGHT PNEUMOTHORAX WITH IMPROVED RIGHT-SIDED SUBCUTANEOUS EMPHYSEMA.
[2018-02-20] MEDS: predniSONE TAB* 20 MG PO SCH (08:23)
[2018-02-20] MEDS: Nicotine Inhaler* 10 MG AMP INH PRN ×3 (08:23→20:09)
[2018-02-20] MEDS: Nicotine PATCH 21 MG/24 HR* PATCH TRANSDERM SCH (08:24)
--- NOTE | 2018-02-20 09:34 | PN ---
Subjective Date of Service: 02/20/18 Interval History: Patient seen and examined at bedside. Denies fever, chills, chest discomfort, N/ V/D. Pt states that the shortness of breath is improving and much better today. He has been able to be weaned off oxygen and is able to walk to the bathroom without much shortness of breath. Noted to still have leak in chest tube. Family History: Unchanged from Admission Social History: Unchanged from Admission Past Medical History: Unchanged from Admission Objective Active Medications: Acetaminophen (Tylenol Tab*) 650 mg PO Q4H PRN Reason: PAIN Albuterol (Ventolin 2.5 Mg/3 Ml Neb.Isamar*) 2.5 mg INH Q2H PRN Reason: SOB/ WHEEZING Albuterol/Ipratropium (Duoneb (Albuterol 2.5 Mg/Ipratropium 0.5 Mg)) 1 neb INH Q4H PRN Reason: SHORTNESS OF BREATH Device (Nicotine Mouth Piece*) 1 each INH .USE WITH NICOTROL PRN Reason: CRAVING Heparin Sodium (Porcine) (Heparin Vial(*)) 5,000 units SUBCUT Q8HR [facility] Lorazepam (Ativan Tab(*)) 0.5 mg PO Q6H PRN Reason: ANXIETY Morphine Sulfate (Morphine Inj ((Syringe))*) 2 mg IV Q4H PRN Reason: PAIN - MILD Nicotine (Nicotine Inhaler*) 10 mg INH Q2H PRN Reason: CRAVING Nicotine (Nicotine Patch 21 Mg/24 Hr*) 1 patch TRANSDERM DAILY@0800 [facility] Ondansetron HCl (Zofran Inj*) 4 mg IV Q6H PRN Reason: NAUSEA Prednisone (Deltasone Tab*) 40 mg PO DAILY [facility] Vital Signs - 8 hr 02/20/18 02/20/18 02/20/18 02:00 02:19 07:15 Temperature 97.6 F Pulse Rate 58 72 Respiratory 16 16 20 Rate Blood Pressure 137/84 142/84 (mmHg) O2 Sat by Pulse 97 96 Oximetry 02/20/18 08:30 Temperature Pulse Rate Respiratory 18 Rate Blood Pressure (mmHg) O2 Sat by Pulse Oximetry Oxygen Devices in Use Now: None Appearance: NAD, sitting up on the side of the bed Ears/Nose/Mouth/Throat: Mucous Membranes Moist Respiratory: Symmetrical Chest Expansion and Respiratory Effort, Clear to Auscultation - , diminished Cardiovascular: NL Sounds; No Murmurs; No JVD, RRR Abdominal: NL Sounds; No Tenderness; No Distention Extremities: No Edema Skin: No Rash or Ulcers, - - Dressing to right upper chest Neurological: Alert and Oriented x 3, NL Muscle Strength and Tone Lines/Tubes/Other Access: Clean, Dry and Intact Peripheral IV - site benign Nutrition: Taking PO's Result Diagrams: 02/16/18 06:39 02/16/18 06:39 Microbiology and Other Data: Microbiology 02/15/18 13:43 Aerobic Blood Culture - Preliminary Blood Venous No Growth Day 1 Anaerobic Blood Culture - Preliminary No Growth Day 1 02/15/18 12:54 Aerobic Blood Culture - Preliminary Blood Venous No Growth Day 1 Anaerobic Blood Culture - Preliminary No Growth Day 1 Assess/Plan/Problems-Billing Assessment: Mr. Leung is a 67 yo man who has a h/o probable COPD and ongoing tobacco abuse (2ppd) who presented to the ER with c/o severe SOB and was found to have a moderate R sided pneumothorax 3 days after a bronchoscopy . - Patient Problems (1) Pneumothorax, acute Code(s): J93.83 - OTHER PNEUMOTHORAX SNOMED Code(s): 28619794 Comment: - Iatrogenic - CXR this AM shows trace PTX - General Surgery consult, input appreciated - Continue Heimlich valve (2) COPD exacerbation Code(s): J44.1 - CHRONIC OBSTRUCTIVE PULMONARY DISEASE W (ACUTE) EXACERBATION SNOMED Code(s): 690038661 Comment: - Improving - Continue prednisone (taper) and nebs (3) Acute hypoxemic respiratory failure Code(s): J96.01 - ACUTE RESPIRATORY FAILURE WITH HYPOXIA SNOMED Code(s): 086850270 Comment: - Resolved - Suspect secondary to COPD exacerbation and pneumothorax (4) Tobacco abuse Code(s): Z72.0 - TOBACCO USE SNOMED Code(s): 984544663 Comment: - Counseled about cessation, he is motivated to quit - Continue Nicotine replacement (5) DVT prophylaxis Code(s): GDJ0730 - SNOMED Code(s): 176144688 Comment: - SQ heparin (6) Full code status Code(s): Z78.9 - OTHER SPECIFIED HEALTH STATUS SNOMED Code(s): 868913063 Status and Disposition: Inpatient. Discharge to home when medically stable.
--- NOTE | 2018-02-20 10:20 | PN ---
Progress Note - Progress Note Date of Service: 02/20/18 SOAP: Subjective: Without complaint today No SOB Objective: Temp Pulse Resp BP Pulse Ox 97.6 F 72 18 142/84 96 02/20/18 07:15 02/20/18 07:15 02/20/18 08:30 02/20/18 07:15 02/20/18 07:15 Chest tube on wall suction-intermittent small leak, much improved from yesterday PEX Right chest tube in postion-lungs sounds are decreased both sides but equal CXR 02/20 reviewed--right lung expanded without ptx Assessment: R Ptx s/p tube placement--still with very small leak but lung is expanded Plan: Continue suction Repeat CXR 02/21 If no leak, d/c tube tomorrow and d/c home
[2018-02-20] MEDS: LORazepam TAB(*) 0.5 MG PO PRN (17:14)
[2018-02-21] MEDS: Acetaminophen TAB* 325 MG PO PRN ×2 (02:21→23:58)
[2018-02-21] MEDS: Mouth Piece, Nicotine* 1 EACH CARTRIDGE INH PRN (02:24)
[2018-02-21] MEDS: Nicotine Inhaler* 10 MG AMP INH PRN ×3 (02:24→19:07)
[2018-02-21] MEDS: Heparin VIAL(*) 5000 UNITS/ML VIAL (FIVE THOUSAND) SUBCUT SCH ×3 (05:09→20:59)
--- NOTE | 2018-02-21 07:46 | RAD ---
INDICATION: Follow-up right pneumothorax COMPARISON: Chest x-ray February 20, 2018 TECHNIQUE: Single AP portable view of the chest was obtained. FINDINGS: Image quality is compromised due to the relative inferiority of a portable chest x-ray. The small bore chest tube is appropriately positioned overlying the right upper lung with the tip overlying the apex. There is a small right-sided pneumothorax not significantly changed from the previous days chest x-ray. Linear density overlying the lower right lung is morphologically most consistent with atelectasis. There is no mediastinal shift. The heart and mediastinal structures are morphologically normal. Visualized bones are normal for the patient's age. IMPRESSION: Persistent small right-sided pneumothorax in the presence of an appropriately positioned small bore chest tube.
--- NOTE | 2018-02-21 08:02 | PN ---
Subjective Date of Service: 02/21/18 Interval History: Patient seen and examined at bedside. Denies fever, chills, shortness of breath , chest discomfort, N/V/D. Pt states that his breathing is much better and he has been ambulating without difficulty. He is anxious to get home, but understands that he needs to stay until the heimlich valve can be removed. He is wondering about the repeat biopsy that he needs done. Family History: Unchanged from Admission Social History: Unchanged from Admission Past Medical History: Unchanged from Admission Objective Active Medications: Acetaminophen (Tylenol Tab*) 650 mg PO Q4H PRN Reason: PAIN Albuterol (Ventolin 2.5 Mg/3 Ml Neb.Isamar*) 2.5 mg INH Q2H PRN Reason: SOB/ WHEEZING Albuterol/Ipratropium (Duoneb (Albuterol 2.5 Mg/Ipratropium 0.5 Mg)) 1 neb INH Q4H PRN Reason: SHORTNESS OF BREATH Device (Nicotine Mouth Piece*) 1 each INH .USE WITH NICOTROL PRN Reason: CRAVING Heparin Sodium (Porcine) (Heparin Vial(*)) 5,000 units SUBCUT Q8HR [facility] Lorazepam (Ativan Tab(*)) 0.5 mg PO Q6H PRN Reason: ANXIETY Morphine Sulfate (Morphine Inj ((Syringe))*) 2 mg IV Q4H PRN Reason: PAIN - MILD Nicotine (Nicotine Inhaler*) 10 mg INH Q2H PRN Reason: CRAVING Nicotine (Nicotine Patch 21 Mg/24 Hr*) 1 patch TRANSDERM DAILY@0800 [facility] Ondansetron HCl (Zofran Inj*) 4 mg IV Q6H PRN Reason: NAUSEA Prednisone (Deltasone Tab*) 30 mg PO DAILY [facility] Vital Signs - 8 hr 02/21/18 02/21/18 03:52 07:16 Temperature 97.5 F Pulse Rate 62 62 Respiratory 18 14 Rate Blood Pressure 153/94 (mmHg) O2 Sat by Pulse 96 93 Oximetry Oxygen Devices in Use Now: None Appearance: NAD, sitting up in bed Ears/Nose/Mouth/Throat: Mucous Membranes Moist Respiratory: Symmetrical Chest Expansion and Respiratory Effort, Clear to Auscultation - , diminished Cardiovascular: NL Sounds; No Murmurs; No JVD, RRR Abdominal: NL Sounds; No Tenderness; No Distention Extremities: No Edema Skin: No Rash or Ulcers Neurological: Alert and Oriented x 3, NL Muscle Strength and Tone Lines/Tubes/Other Access: Clean, Dry and Intact Peripheral IV - site benign, Clean, Dry and Intact Other Access - Heimlich valve right upper chest Nutrition: Taking PO's Result Diagrams: 02/16/18 06:39 02/16/18 06:39 Microbiology and Other Data: Microbiology 02/15/18 13:43 Aerobic Blood Culture - Preliminary Blood Venous No Growth Day 1 Anaerobic Blood Culture - Preliminary No Growth Day 1 02/15/18 12:54 Aerobic Blood Culture - Preliminary Blood Venous No Growth Day 1 Anaerobic Blood Culture - Preliminary No Growth Day 1 Assess/Plan/Problems-Billing Assessment: Mr. Leung is a 67 yo man who has a h/o probable COPD and ongoing tobacco abuse (2ppd) who presented to the ER with c/o severe SOB and was found to have a moderate R sided pneumothorax 3 days after a bronchoscopy . - Patient Problems (1) Pneumothorax, acute Code(s): J93.83 - OTHER PNEUMOTHORAX SNOMED Code(s): 75247684 Comment: - Iatrogenic - CXR this AM shows trace PTX - General Surgery consult, input appreciated - Continue Heimlich valve (2) COPD exacerbation Code(s): J44.1 - CHRONIC OBSTRUCTIVE PULMONARY DISEASE W (ACUTE) EXACERBATION SNOMED Code(s): 035104855 Comment: - Improving - Continue prednisone (taper) and nebs (3) Acute hypoxemic respiratory failure Code(s): J96.01 - ACUTE RESPIRATORY FAILURE WITH HYPOXIA SNOMED Code(s): 744468374 Comment: - Resolved - Suspect secondary to COPD exacerbation and pneumothorax (4) Mediastinal lymphadenopathy Code(s): R59.0 - LOCALIZED ENLARGED LYMPH NODES SNOMED Code(s): 93274661 Comment: - S/P bronch on 02/14/18 - Pathology was negative, but it was an insufficient sample per Dr. Espinoza - Will attempt to obtain records from [place] - CT guided bx could be done outpatient, will refer back to Dr. Espinoza at discharge (5) Tobacco abuse Code(s): Z72.0 - TOBACCO USE SNOMED Code(s): 877877362 Comment: - Counseled about cessation, he is motivated to quit - Continue Nicotine replacement (6) DVT prophylaxis Code(s): KTU0583 - SNOMED Code(s): 485324215 Comment: - SQ heparin (7) Full code status Code(s): Z78.9 - OTHER SPECIFIED HEALTH STATUS SNOMED Code(s): 172834826 Status and Disposition: Inpatient. Discharge to home when medically stable, possibly in the AM.
--- NOTE | 2018-02-21 08:43 | PN ---
Progress Note - Progress Note Date of Service: 02/21/18 Note: S/P Heimlich valve for right ptx Feeling much better. Breathing easy and unlabored Lung well expanded No air leak D/C suction from chest tube Re-check CXr after 4 hrs. If OK, D/C Heimlich valve OK to discharge per medicine
[2018-02-21] MEDS: Nicotine PATCH 21 MG/24 HR* PATCH TRANSDERM SCH (08:51)
[2018-02-21] MEDS: predniSONE TAB* 10 MG PO SCH (08:51)
[2018-02-21] MEDS: LORazepam TAB(*) 0.5 MG PO PRN (10:22)
--- NOTE | 2018-02-21 14:23 | RAD ---
INDICATION: Follow-up RIGHT pneumothorax. COPD exacerbation. COMPARISON: February 22, 2008 0638 hours TECHNIQUE: Dual energy PA and routine lateral views of the chest were obtained. REPORT: Heimlich valve type RIGHT apical chest tube in place. No persistent conspicuous RIGHT pneumothorax. Elevated lung volumes and both mild prominence and significant rarefaction of interstitial markings. Negative for pulmonary infiltrate, focal pulmonary lesions, or pleural effusions. The heart, pulmonary vasculature, and mediastinal contours are unremarkable. IMPRESSION: #. No persistent conspicuous RIGHT pneumothorax. Heimlich valve chest tube remains in place. #. Stigmata of advanced chronic obstructive pulmonary disease and emphysema.
--- NOTE | 2018-02-21 14:51 | PN ---
Progress Note - Progress Note Date of Service: 02/21/18 - REMOVAL OF HEIMLICH VALVE Note: Repeat CXR this afternoon revealed no pneumothorax;cough test at bedside negative for air leak;Heimlich valve removed with ease;small occlusive dressing applied and may be removed to shower in 48 hrs.Discharge to be arranged by Hospitalist service. Mónica,MEDICAL ILLUSTRATOR
[2018-02-22] MEDS: LORazepam TAB(*) 0.5 MG PO PRN (01:25)
[2018-02-22] MEDS: Nicotine Inhaler* 10 MG AMP INH PRN (01:29)
[2018-02-22] MEDS: Heparin VIAL(*) 5000 UNITS/ML VIAL (FIVE THOUSAND) SUBCUT SCH (05:41)
--- NOTE | 2018-02-22 07:48 | PN ---
Subjective Date of Service: 02/22/18 Interval History: Patient seen and examined at bedside. Denies fever, chills, shortness of breath , chest discomfort, N/V/D. Pt is anxious about going home and his ability to stop smoking we discussed that he has been able to not smoke while here and the plan is to continue to the same nicotine replacement at home. Family History: Unchanged from Admission Social History: Unchanged from Admission Past Medical History: Unchanged from Admission Objective Active Medications: Acetaminophen (Tylenol Tab*) 650 mg PO Q4H PRN Reason: PAIN Albuterol (Ventolin 2.5 Mg/3 Ml Neb.Isamar*) 2.5 mg INH Q2H PRN Reason: SOB/ WHEEZING Albuterol/Ipratropium (Duoneb (Albuterol 2.5 Mg/Ipratropium 0.5 Mg)) 1 neb INH Q4H PRN Reason: SHORTNESS OF BREATH Device (Nicotine Mouth Piece*) 1 each INH .USE WITH NICOTROL PRN Reason: CRAVING Heparin Sodium (Porcine) (Heparin Vial(*)) 5,000 units SUBCUT Q8HR MARIA L Lorazepam (Ativan Tab(*)) 0.5 mg PO Q6H PRN Reason: ANXIETY Morphine Sulfate (Morphine Inj ((Syringe))*) 2 mg IV Q4H PRN Reason: PAIN - MILD Nicotine (Nicotine Inhaler*) 10 mg INH Q2H PRN Reason: CRAVING Nicotine (Nicotine Patch 21 Mg/24 Hr*) 1 patch TRANSDERM DAILY@0800 [facility] Ondansetron HCl (Zofran Inj*) 4 mg IV Q6H PRN Reason: NAUSEA Prednisone (Deltasone Tab*) 30 mg PO DAILY [facility] Vital Signs - 8 hr 02/22/18 02/22/18 02/22/18 01:25 03:22 04:12 Temperature 98.3 F Pulse Rate 62 Respiratory 18 18 16 Rate Blood Pressure 131/84 (mmHg) O2 Sat by Pulse 98 Oximetry Oxygen Devices in Use Now: None Appearance: NAD, sitting up on the side of the bed Ears/Nose/Mouth/Throat: Mucous Membranes Moist Respiratory: Symmetrical Chest Expansion and Respiratory Effort, Clear to Auscultation Cardiovascular: NL Sounds; No Murmurs; No JVD, RRR Abdominal: NL Sounds; No Tenderness; No Distention Extremities: No Edema Skin: No Rash or Ulcers Neurological: Alert and Oriented x 3, NL Muscle Strength and Tone Lines/Tubes/Other Access: Clean, Dry and Intact Peripheral IV - site benign Nutrition: Taking PO's Result Diagrams: 02/16/18 06:39 02/16/18 06:39 Microbiology and Other Data: Microbiology 02/15/18 13:43 Aerobic Blood Culture - Preliminary Blood Venous No Growth Day 1 Anaerobic Blood Culture - Preliminary No Growth Day 1 02/15/18 12:54 Aerobic Blood Culture - Preliminary Blood Venous No Growth Day 1 Anaerobic Blood Culture - Preliminary No Growth Day 1 Assess/Plan/Problems-Billing Assessment: Mr. Leung is a 67 yo man who has a h/o probable COPD and ongoing tobacco abuse (2ppd) who presented to the ER with c/o severe SOB and was found to have a moderate R sided pneumothorax 3 days after a bronchoscopy . - Patient Problems (1) Pneumothorax, acute Code(s): J93.83 - OTHER PNEUMOTHORAX SNOMED Code(s): 41452099 Comment: - Resolved - Iatrogenic, occured 1 day after Bronch and BX - General Surgery consult, input appreciated - Heimlich valve removed yesterday (2) COPD exacerbation Code(s): J44.1 - CHRONIC OBSTRUCTIVE PULMONARY DISEASE W (ACUTE) EXACERBATION SNOMED Code(s): 872614116 Comment: - Improving - Continue prednisone (taper) and nebs (3) Acute hypoxemic respiratory failure Code(s): J96.01 - ACUTE RESPIRATORY FAILURE WITH HYPOXIA SNOMED Code(s): 067831172 Comment: - Resolved - Suspect secondary to COPD exacerbation and pneumothorax (4) Mediastinal lymphadenopathy Code(s): R59.0 - LOCALIZED ENLARGED LYMPH NODES SNOMED Code(s): 53822627 Comment: - S/P bronch on 02/14/18 - Pathology was negative, but it was an insufficient sample per Dr. Espinoza - Unable to obtain chest CT records from [place] - CT guided bx could be done outpatient, will refer back to Dr. Espinoza at discharge (5) Tobacco abuse Code(s): Z72.0 - TOBACCO USE SNOMED Code(s): 849411200 Comment: - Counseled about cessation, he is motivated to quit - Continue Nicotine replacement (6) DVT prophylaxis Code(s): GWN6635 - SNOMED Code(s): 064669370 Comment: - SQ heparin (7) Full code status Code(s): Z78.9 - OTHER SPECIFIED HEALTH STATUS SNOMED Code(s): 593646161 Status and Disposition: Inpatient. Stable for discharge to home today.
[2018-02-22] MEDS: predniSONE TAB* 10 MG PO SCH (07:59)
[2018-02-22] MEDS: Nicotine PATCH 21 MG/24 HR* PATCH TRANSDERM SCH (08:00)
[2018-02-22 09:09] VITALS: BP 140/90
--- NOTE | 2018-02-22 23:11 | DS ---
CC: Dr. Cuco Espinoza; Dr. Osmin Bolton * DISCHARGE SUMMARY: DATE OF ADMISSION: 02/15/18 DATE OF DISCHARGE: 02/22/18 ATTENDING PHYSICIAN: Walter Easton MD * (dictated by Precious White NP) PRIMARY CARE PROVIDER: Dr. Osmin Bolton. PRIMARY DIAGNOSES: 1. Iatrogenic pneumothorax. 2. Chronic obstructive pulmonary disease exacerbation. 3. Acute hypoxic respiratory failure, resolved. SECONDARY DIAGNOSES: 1. Mediastinal lymphadenopathy. 2. Tobacco abuse. CONSULTATIONS WHILE IN THE HOSPITAL: Kris Pascual MD, with General Surgery. PROCEDURES WHILE IN THE HOSPITAL: Status post placement of Heimlich valve on . STUDIES WHILE IN THE HOSPITAL: 1. Chest x-ray on 02/15/18. Radiologist's impression: Moderate right-sided pneumothorax. 2. Chest x-ray on 02/15/18. Radiologist's impression: Apparent interval resolution of right-sided pneumothorax, status post small-bore chest tube placement. Density at the right lung base could represent atelectasis, infiltrate, or neoplasm. 3. Chest x-ray on 02/17/18. Radiologist's impression: Right pneumothorax persists with subcutaneous emphysema. 4. Chest x-ray on 02/18/18. Radiologist's impression: Persistent but improving right-sided pneumothorax, predominantly along the right costophrenic angle. 5. Chest x-ray on 02/20/18. Radiologist's impression: Trace right pneumothorax with improved right-sided subcutaneous emphysema. 6. Chest x-ray on 02/21/18. Radiologist's impression: Persistent small right- sided pneumothorax and the presence of an appropriately positioned small-bore chest tube. 7. Chest x-ray on 02/21/18. Radiologist's impression: No persistent conspicuous right pneumothorax. Heimlich valve chest tube remains in place. Stigmata of advanced chronic obstructive pulmonary disease and emphysema. DISCHARGE MEDICATIONS: New home medications: 1. Acetaminophen 650 mg oral every 4 hours as needed for pain. 2. Nicotine inhaler 10 mg inhalation every 2 hours as needed for nicotine cravings. 3. Nicotine patch 21 mg 1 patch transdermal daily in the morning, remove at bedtime. 4. Prednisone 10 mg tablets 30 mg oral daily, 1 dose in the morning on followed by 2 tablets daily, 20 mg daily for 3 days followed by 10 mg daily for 3 days, and then stop. 5. Lorazepam 0.5 mg oral daily as needed for anxiety. Continued home medications: 1. Aspirin 162 mg oral daily. 2. Albuterol HFA inhaler 2 puffs inhalation every 4 hours as needed. HISTORY OF PRESENT ILLNESS/HOSPITAL COURSE: Mr. Leung is a 67-year-old male who reported no past medical history, presented to the emergency room with complaints of sudden onset of shortness of breath. The day prior, the patient had undergone a bronchoscopy and biopsy at [facility] due to findings of mediastinal lymphadenopathy. The patient reported having 2 anxiety attacks, noting that his heart was rapid, he was able to calm himself down and his symptoms resolved. He woke at approximately 4 a.m., feeling as though he needed to go outside to smoke. He had 2 or 3 cigarettes, suddenly felt severely short of breath. He tried using his albuterol inhaler multiple times with no effect. Ultimately, his roommate felt it was important for him to come to the emergency room, so he presented to the emergency room for further evaluation. While in the emergency room, the patient had labs that were remarkable for leukocytosis with a WBC count of 19. He had an unremarkable urinalysis. He had an EKG showing ST depressions in the inferior leads. He had a chest x-ray showing a moderate right-sided pneumothorax. Initially, the patient was treated by BiPAP in the emergency room. Dr. Pascual evaluated the patient for Heimlich valve insertion. The patient was also noted to have lactic acidosis. His leukocytosis and lactic acidosis were suspected to be secondary to his pneumothorax. The Hospitalists were asked to evaluate the patient for admission. During his hospitalization he had a suspected COPD disease and was treated as a COPD exacerbation initially with Solu-Medrol and then transitioned to oral prednisone. The patient was initially having significant amount of anxiety and shortness of breath with ambulation. He had a persistent pneumothorax and his Heimlich valve was continued. Once his lung reinflated and stayed reinflated, his shortness of breath resolved and his anxiety improved. He did have acute hypoxic respiratory failure that resolved during his stay, it was suspected to be secondary to a COPD exacerbation and his pneumothorax. The patient eventually was able to have his Heimlich valve removed. It was also noted during his stay that he received a call from Dr. Espinoza that his pathology was negative but an insufficient sample. I was unable to obtain a chest CT result from [place] so that we could consider doing a CT-guided biopsy while here. It was felt this could be deferred as outpatient. The patient was counseled on tobacco sensation and he is motivated to quit. Mr. Leung is stable for discharge to home today. Vital signs are as follows: Temperature 98.0, heart rate 72, respiratory rate 18, O2 sat 97% on room air, blood pressure 140/90. DISCHARGE PLAN: Mr. Leung will be discharged to home. Activity as tolerated. He will be on a regular diet. In regards to his pneumothorax, this is resolved. He can follow up with Dr. Pascual as needed. For chronic obstructive pulmonary disease exacerbation, he has been continued on a prednisone taper, he has been provided with 10 mg tablets. He has been instructed to take 30 mg tomorrow followed by 20 mg oral daily for 3 days followed by 10 mg oral for 3 days and then stop. The patient has a significant amount of anxiety and has been provided with lorazepam 0.5 mg oral every 12 hours as needed for anxiety. I checked [employer] with reference number [id number]. In regards to his tobacco abuse, he has been encouraged to keep up the good work with not smoking and he has been continued on nicotine patch and nicotine inhalers. The patient has been asked to keep a dressing to his right upper chest in place for 48 hours and then he can remove it and shower. He has a follow-up appointment at Dr. Osmin Bolton his primary care provider's office with MARTIN Lovell on at 02:15 p.m. Points of discussion at followup: Please continue to assess the patient to make sure that he gets back in with Dr. Espinoza's office to have an outpatient CT- guided biopsy to evaluate his mediastinal lymphadenopathy. Continue to encourage him to stop smoking. This is a summarized report of a complex medical history and hospital stay. For further details, please see the entire medical record. TIME SPENT: Time for this discharge was approximately 60 minutes, greater than half of that was spent with the patient discussing discharge plans and instructions. CONDITION ON DISCHARGE: Stable. Reviewed by MONTRELL ROGERS 02/23/18 1822 [id number]/[facility] #: [id number] SEAN
== END 2018-02-22 10:30 | disposition home or self-care (01) | DRG 199 ==
LOC: ED 12:31 → MED 15:14
PROVIDERS: ADMIT Hospitalist; ATTEND Internal Medicine
PROC: 0W9930Z Drainage of Right Pleural Cavity with Drainage Device, Percutaneous Approach (ICD-10-PCS; principal; 2018-02-15)
PROC: 5A09357 Assistance with Respiratory Ventilation, Less than 24 Consecutive Hours, Continuous Positive Airway Pressure (ICD-10-PCS; 2018-02-15)
DX: J93.83 Other pneumothorax (principal); J96.01 Acute respiratory failure with hypoxia; J44.1 Chronic obstructive pulmonary disease with (acute) exacerbation; E87.2 Acidosis; F17.210 Nicotine dependence, cigarettes, uncomplicated; R59.0 Localized enlarged lymph nodes; D72.829 Elevated white blood cell count, unspecified; F41.9 Anxiety disorder, unspecified; Z79.82 Long term (current) use of aspirin; Z79.899 Other long term (current) drug therapy; Z88.2 Allergy status to sulfonamides; Z82.3 Family history of stroke; Z82.49 Family history of ischemic heart disease and other diseases of the circulatory system
CPT/HCPCS: 36415; 71045; 71046; 80048; 80053; 81003; 82550; 82803; 83605; 83880; 84145; 84484; 85025; 86140; 87040; 87070; 87205; 93005; 94640; 99284; 99406; A9270-GY; J0696; J1644; J2270; J2920; J7512